=== PATIENT | male | born 1990 ===

== ENCOUNTER 2017-11-30 16:32 | Observation (INO) | payer OTHER ==
[2017-11-30] MEDS ORDERED: Lidocaine 2% MPF (5 ml) Inj ONE ×3 (16:57→18:57)
--- NOTE | 2017-11-30 18:16 | C.PDOC ---
History Of Present Illness 52 year old male comes to ER from an urgent care facility for evaluation of left ankle pain after he twisted it 3 days ago. Patient states he did not seek medical evaluation at time of injury, but went today due to persistent pain. Sarah farris was evaluated at [facility] and had XRays done and was sent to the ER to rule out compartment syndrome. He otherwise denies any lower extremity weakness or numbness. Time Seen by Provider: 11/30/17 16:38 Chief Complaint (Nursing): Lower Extremity Problem/Injury History Per: Patient History/Exam Limitations: no limitations Onset/Duration Of Symptoms: Days (3) Current Symptoms Are (Timing): Still Present Past Medical History Reviewed: Historical Data, Nursing Documentation, Vital Signs Vital Signs: Last Vital Signs Temp 985 F H 11/30/17 16:35 Pulse 78 11/30/17 16:35 Resp 15 11/30/17 16:35 BP 139/79 11/30/17 16:35 Pulse Ox 98 11/30/17 16:35 - Medical History PMH: No Chronic Diseases Surgical History: No Surg Hx Family History: States: No Known Family Hx - Social History Hx Alcohol Use: No Hx Substance Use: No - Immunization History Hx Tetanus Toxoid Vaccination: No Hx Influenza Vaccination: No Hx Pneumococcal Vaccination: No Review Of Systems Constitutional: Negative for: Fever, Chills Musculoskeletal: Positive for: Foot Pain (left foot and ankle pain and swelling) Neurological: Negative for: Weakness, Numbness Physical Exam - Physical Exam Appears: Non-toxic Skin: Normal Color, Warm, Dry Head: Atraumatic, Normacephalic, No Tenderness, No Swelling Eye(s): bilateral: Normal Inspection, EOMI Neck: Supple Chest: Symmetrical Extremity: Normal ROM, Tenderness (left ankle and foot diffuse tenderness greater at lateral aspect), Calf Tenderness (mild tenderness distal lateral calf, no redness or swelling), Capillary Refill, Swelling (left ankle and foot) Pulses: Left Dorsalis Pedis: Normal Neurological/Psych: Oriented x3, Normal Speech Gait: Steady ED Course And Treatment - Laboratory Results Result Diagrams: 11/30/17 20:05 11/30/17 20:05 Lab Interpretation: No Acute Changes O2 Sat by Pulse Oximetry: 98 (RA) Pulse Ox Interpretation: Normal Medical Decision Making Medical Decision Making: Impression: left ankle and foot pain and swelling Plan: -- XRays from [facility] reviewed and discussed case with provider at [facility]. Discussed case with ER physician Dr. Mckeon, who is agreeable with plan for podiatry consult. 1813 Case discussed with podiatry resident, who requests a CK study. 1829 Podiatry resident in ER, will evaluate patient. 1946 Podiatry resident evaluated compartment pressure and states pressure is slightly elevated on the lateral side with a reading of 39. CK results reviewed and elevated at 84. Podiatry resident requesting admission for observation, per Dr Urban. They also request dimer and doppler in AM to rule out DVT. Dr. Byrne, hospitalist crop production advisor paged. [address] Byrne, patient to be admitted for observation under him Labs ordered. Disposition - Disposition Disposition Time: 19:49 Condition: STABLE - POA Present On Arrival: None - Clinical Impression Clinical Impression: Pain and swelling of left ankle - PA / CORRECTIONS LIEUTENANT / Resident Statement MD/DO has reviewed & agrees with the documentation as recorded. - Scribe Statement The provider has reviewed the documentation as recorded by the Maria Luisa Dillon Provider Attestation: All medical record entries made by the Maria Luisa were at my direction and personally dictated by me. I have reviewed the chart and agree that the record accurately reflects my personal performance of the history, physical exam, medical decision making, and the department course for this patient. I have also personally directed, reviewed, and agree with the discharge instructions and disposition. Decision To Admit - Pt Status Changed To: Hospital Disposition Of: Observation - . Bed Request Type: Regular Admitting Physician: Leo Byrne Patient Diagnosis: Pain and swelling of left ankle
[2017-11-30] MEDS ORDERED: Morphine 4 MG/ML VIAL ONE (19:18)
[2017-11-30 20:08] LABS: BASO # 0.1 K/uL (0.0-0.2); BASO % 0.6 % (0.0-2.0); EOS # 0.2 K/uL (0.0-0.7); EOS % 2.4 % (0.0-4.0); HEMOGLOBIN 14.6 g/dL (12.0-18.0); LYMPH # 2.6 K/uL (1.0-4.3); LYMPH % 30.6 % (20.0-40.0); MEAN CELL VOLUME 86.2 fL (80.0-94.0); MEAN CORPUSCULAR HEMOGLOBIN 30.3 pg (27.0-31.0); MEAN CORPUSCULAR HGB CONC 35.1 g/dL (33.0-37.0); MEAN PLATELET VOLUME 8.3 fL (7.2-11.7); MONO # 0.4 K/uL (0.0-0.8); MONO % 5.1 % (0.0-10.0); NEUT # 5.3 K/uL (1.8-7.0); NEUT % 61.3 % (50.0-75.0); NRBC % 0.1 % (0.0-2.0); RBC 4.81 Mil/uL (4.40-5.90); RED CELL DISTRIBUTION WIDTH 12.8 % (11.5-14.5); WHITE BLOOD COUNT 8.6 K/uL (4.8-10.8)
[2017-11-30 20:27] LABS: ALB/GLOB RATIO 1.7 (1.0-2.1); ALBUMIN 4.5 g/dL (3.5-5.0); ALT/SGPT 40 U/L (21-72); AST/SGOT 21 U/L (17-59); BLOOD UREA NITROGEN 13 mg/dL (9-20); CALCIUM 9.5 mg/dl (8.6-10.4); GFR NON-AFRICAN AMERICAN > 60
--- NOTE | 2017-11-30 21:24 | CP.PCM.HP ---
Past Patient History - Infectious Disease Hx of Infectious Diseases: None - Past Social History Smoking Status: Never Smoked - PSYCHIATRIC Hx Substance Use: No - SURGICAL HISTORY Hx Surgeries: No - ANESTHESIA Hx Anesthesia: No Meds Allergies/Adverse Reactions: Allergies Allergy/AdvReac Type Severity Reaction Status Date / Time No Known Allergies Allergy Verified 11/30/17 16:34 Results - Vital Signs Recent Vital Signs: Last Vital Signs Temp 98.5 F 11/30/17 16:35 Pulse 68 11/30/17 20:33 Resp 13 11/30/17 20:33 BP 130/74 11/30/17 20:33 Pulse Ox 98 11/30/17 20:50 - Labs Result Diagrams: 11/30/17 20:05 11/30/17 20:05 Labs: Laboratory Results - last 24 hr 11/30/17 11/30/17 11/30/17 18:14 20:05 20:05 WBC 8.6 RBC 4.81 Hgb 14.6 Hct 41.5 MCV 86.2 MCH 30.3 MCHC 35.1 RDW 12.8 Plt Count 256 MPV 8.3 Neut % (Auto) 61.3 Lymph % (Auto) 30.6 [place] % (Auto) 5.1 Eos % (Auto) 2.4 Baso % (Auto) 0.6 Neut # (Auto) 5.3 Lymph # (Auto) 2.6 [place] # (Auto) 0.4 Eos # (Auto) 0.2 Baso # (Auto) 0.1 Sodium 143 Potassium 4.2 Chloride 107 Carbon Dioxide 24 Anion Gap 17 BUN 13 Creatinine 0.8 Est GFR ( Amer) > 60 Est GFR (Non-Af Amer) > 60 Random Glucose 85 Calcium 9.5 Total Bilirubin 0.6 AST 21 ALT 40 Alkaline Phosphatase 52 Total Creatine Kinase 86 Total Protein 7.1 Albumin 4.5 Globulin 2.6 Albumin/Globulin Ratio 1.7
--- NOTE | 2017-11-30 21:28 | CP.PCM.HP ---
<Ori Shaikh - Last Filed: 11/30/17 23:12> History of Present Illness - History of Present Illness History of Present Illness: CC: Left ankle/foot pain 27 y/o M w/ no PMHx, presents to ED w/ complaints of left foot pain X 3 days ago. Pain began after stepping off of a curb and subsequently twisting his ankle. The patient did not immediately seek medical attention, stating that he thought the pain was due an area of skin irritation on the same foot, between the 2nd and 3rd digits. He describes the pain as a hot stabbing pain, 8/10 at its peak, 5/10 at its lowest pain. He additionally states that the pain is all around his foot and occasionally shoots up proximal leg and knee area. The left foot pain is worse with dorsiflexion & plantarflexion and improved with ibuprofen. Pt states that he has been taking 3 tablets every 3-4 hours. Reports tingling in the left toes, but denies numbness. Patient does admit to recent travel, including 10 hour bus ride about 1 month prior. Patient reports mild L calf pain. Patient reports having visited an urgent care center earlier today for the pain, xray was performed, which showed no fractures; however, the urgent care recommended f/u in hospital to r/o compartment syndrome. ROS: Denies headaches, vision changes, chest pain, SOB, abdominal pain, constipation, diarrhea, fevers/chills, urinary complaints PMD: None PMHx: None Meds: Ibuprofen for the ankle pain Q3-4H Allergies: NKDA Surgeries: None FHx: Mother - sickle cell anemia, father - unknown SHx: Denies tobacco use, occasional ETOH consumption, occasional marijuana use, denies further drug use Present on Admission - Present on Admission Any Indicators Present on Admission: No Review of Systems - Constitutional Constitutional: absent: Chills, Fever - EENT Eyes: absent: Blurred Vision, Change in Vision Ears: absent: Decreased Hearing - Cardiovascular Cardiovascular: absent: Chest Pain, Leg Edema, Pedal Edema - Respiratory Respiratory: absent: Wheezing, Stridor - Gastrointestinal Gastrointestinal: absent: Abdominal Pain, Diarrhea - Genitourinary Genitourinary: absent: Change in Urinary Stream - Musculoskeletal Musculoskeletal: absent: Abnormal Gait, Muscle Weakness - Integumentary Integumentary: Skin Ulcer - Neurological Neurological: absent: Headaches, Loss of Vision Past Patient History - Infectious Disease Hx of Infectious Diseases: None - Past Social History Smoking Status: Never Smoked - PSYCHIATRIC Hx Substance Use: No - SURGICAL HISTORY Hx Surgeries: No - ANESTHESIA Hx Anesthesia: No Meds Allergies/Adverse Reactions: Allergies Allergy/AdvReac Type Severity Reaction Status Date / Time No Known Allergies Allergy Verified 11/30/17 16:34 Physical Exam - Constitutional Appears: Non-toxic, No Acute Distress - Head Exam Head Exam: ATRAUMATIC, NORMAL INSPECTION, NORMOCEPHALIC - Eye Exam Eye Exam: EOMI, Normal appearance, PERRL Pupil Exam: NORMAL ACCOMODATION - ENT Exam ENT Exam: Mucous Membranes Moist - Respiratory Exam Respiratory Exam: Clear to Auscultation Bilateral, NORMAL BREATHING PATTERN. absent: Rales, Rhonchi, Wheezes - Cardiovascular Exam Cardiovascular Exam: +S1, +S2. absent: Systolic Murmur - GI/Abdominal Exam GI & Abdominal Exam: Normal Bowel Sounds, Soft. absent: Firm, Guarding, Tenderness - Extremities Exam Extremities exam: Positive for: calf tenderness, normal capillary refill, tenderness, pedal pulses present. Negative for: pedal edema Additional comments: Superficial skin ulcer on lateral side of 2nd digit no discharge note Pain on plantarflexion/dorsiflexion Capillary reflex < 2 Posterior tibial pulse present [place] pedal pulse present No erythema present - Back Exam Back exam: absent: CVA tenderness (L), CVA tenderness (R) - Neurological Exam Neurological exam: Alert, CN II-XII Intact, Oriented x3 - Psychiatric Exam Psychiatric exam: Normal Affect, Normal Mood - Skin Skin Exam: Dry, Intact, Normal Color, Warm Results - Vital Signs Recent Vital Signs: Last Vital Signs Temp 98.5 F 11/30/17 16:35 Pulse 68 11/30/17 20:33 Resp 13 11/30/17 20:33 BP 130/74 11/30/17 20:33 Pulse Ox 98 11/30/17 20:50 - Labs Result Diagrams: 11/30/17 20:05 11/30/17 20:05 Labs: Laboratory Results - last 24 hr 11/30/17 11/30/17 11/30/17 18:14 20:05 20:05 WBC 8.6 RBC 4.81 Hgb 14.6 Hct 41.5 MCV 86.2 MCH 30.3 MCHC 35.1 RDW 12.8 Plt Count 256 MPV 8.3 Neut % (Auto) 61.3 Lymph % (Auto) 30.6 [place] % (Auto) 5.1 Eos % (Auto) 2.4 Baso % (Auto) 0.6 Neut # (Auto) 5.3 Lymph # (Auto) 2.6 [place] # (Auto) 0.4 Eos # (Auto) 0.2 Baso # (Auto) 0.1 D-Dimer, Quantitative < 200 Sodium Potassium Chloride Carbon Dioxide Anion Gap BUN Creatinine Est GFR ( Amer) Est GFR (Non-Af Amer) Random Glucose Calcium Total Bilirubin AST ALT Alkaline Phosphatase Total Creatine Kinase 86 Total Protein Albumin Globulin Albumin/Globulin Ratio 11/30/17 20:05 WBC RBC Hgb Hct MCV MCH MCHC RDW Plt Count MPV Neut % (Auto) Lymph % (Auto) [place] % (Auto) Eos % (Auto) Baso % (Auto) Neut # (Auto) Lymph # (Auto) [place] # (Auto) Eos # (Auto) Baso # (Auto) D-Dimer, Quantitative Sodium 143 Potassium 4.2 Chloride 107 Carbon Dioxide 24 Anion Gap 17 BUN 13 Creatinine 0.8 Est GFR ( Amer) > 60 Est GFR (Non-Af Amer) > 60 Random Glucose 85 Calcium 9.5 Total Bilirubin 0.6 AST 21 ALT 40 Alkaline Phosphatase 52 Total Creatine Kinase Total Protein 7.1 Albumin 4.5 Globulin 2.6 Albumin/Globulin Ratio 1.7 Assessment & Plan - Assessment and Plan (Free Text) Assessment: 27 y/o M w/ no PMHx, presents to ED w/ complaints of left foot pain X 3 days ago: L ankle/foot pain R/o compartment syndrome vs DVT - per urgent care center Xray: no fractures noted - F/u podiatry recs - Dr. Urban - Per ED note, compartment pressures slightly elevated - Would like admission for observation - Ibuprofen 400mg Q8H PRN mild pain - Ibuprofen 400mg Q8H PRN moderate pain - Toradol 15mg Q8H PRN severe pain Prophylaxis - GI: Protonix 40mg PO - DVT: DVT risk score 0 D/w Dr. Caty Shaikh, PGY1 <Leo Byrne - Last Filed: 12/01/17 06:31> Results - Vital Signs Recent Vital Signs: Last Vital Signs Temp 98.2 F 12/01/17 00:13 Pulse 67 12/01/17 00:13 Resp 20 12/01/17 00:13 BP 114/71 12/01/17 00:13 Pulse Ox 97 12/01/17 00:13 - Labs Result Diagrams: 11/30/17 20:05 11/30/17 20:05 Labs: Laboratory Results - last 24 hr 11/30/17 11/30/17 11/30/17 18:14 20:05 20:05 WBC 8.6 RBC 4.81 Hgb 14.6 Hct 41.5 MCV 86.2 MCH 30.3 MCHC 35.1 RDW 12.8 Plt Count 256 MPV 8.3 Neut % (Auto) 61.3 Lymph % (Auto) 30.6 [place] % (Auto) 5.1 Eos % (Auto) 2.4 Baso % (Auto) 0.6 Neut # (Auto) 5.3 Lymph # (Auto) 2.6 [place] # (Auto) 0.4 Eos # (Auto) 0.2 Baso # (Auto) 0.1 D-Dimer, Quantitative < 200 Sodium Potassium Chloride Carbon Dioxide Anion Gap BUN Creatinine Est GFR ( Amer) Est GFR (Non-Af Amer) Random Glucose Calcium Total Bilirubin AST ALT Alkaline Phosphatase Total Creatine Kinase 86 Total Protein Albumin Globulin Albumin/Globulin Ratio 11/30/17 20:05 WBC RBC Hgb Hct MCV MCH MCHC RDW Plt Count MPV Neut % (Auto) Lymph % (Auto) [place] % (Auto) Eos % (Auto) Baso % (Auto) Neut # (Auto) Lymph # (Auto) [place] # (Auto) Eos # (Auto) Baso # (Auto) D-Dimer, Quantitative Sodium 143 Potassium 4.2 Chloride 107 Carbon Dioxide 24 Anion Gap 17 BUN 13 Creatinine 0.8 Est GFR ( Amer) > 60 Est GFR (Non-Af Amer) > 60 Random Glucose 85 Calcium 9.5 Total Bilirubin 0.6 AST 21 ALT 40 Alkaline Phosphatase 52 Total Creatine Kinase Total Protein 7.1 Albumin 4.5 Globulin 2.6 Albumin/Globulin Ratio 1.7 Assessment & Plan - Date & Time Date: 12/01/17 (I have seen and examined the patient. I agree with the findings and plan of care as documented by Dr. Shaikh. Patient with recent ankle injury resulting in swelling and pain. Concern for potential compartment syndrome. Consult to podiatry. Symptomatic treatment. Lower extremity doppler. Monitor for acute changes.) Time: 06:29 Attending/Attestation - Attestation I have personally seen and examined this patient.: Yes I have fully participated in the care of the patient.: Yes I have reviewed all pertinent clinical information: Yes
[2017-11-30 21:40] VITALS: RESP 20
--- NOTE | 2017-12-01 06:55 | CP.PCM.CON ---
History of Present Illness - History of Present Illness History of Present Illness: 27 y/o male patient with no significant PMHx presented to the ED due to complaints of pain to his left ankle. Patient states 3 days prior he twisted his ankle while walking on an uneven sidewalk. Patient did not seek medical treatment at that time. Patient states he attributed the pain coming from his interdigital maceration, however, the pain worsened overtime. Patient reports he took Ibuprofen for the pain, however, that did not alleviate his symptoms. Patient went to [facility]gent [facility] and had radiographic imaging performed. James mora reports he was told he does not have a fracture or a dislocation, however, was sent to [facility] to r/o Compartment Syndrome. Patient states he continued to work the last 3 days, however, today he was unable to bear weight or walk more than 2 feet. Patient also complains of posterior calf pain. Patient reports he is normally a very active individual. Patient denies any other symptoms, and denies chest pain, nausea, vomiting, SOB. PMHx: none PSHx: none Allergies: none Medications: none Social Hx: Denies tobacco use, occasional ETOH consumption, occasional marijuana use, denies further drug use Review of Systems - Constitutional Constitutional: absent: Chills, Fatigue, Weakness - EENT Eyes: absent: Blurred Vision - Cardiovascular Cardiovascular: absent: Chest Pain, Chest Pain at Rest, Chest Pain with Activity, Dyspnea on Exertion - Respiratory Respiratory: absent: Cough, Dyspnea - Gastrointestinal Gastrointestinal: absent: Abdominal Pain, Nausea, Vomiting - Musculoskeletal Musculoskeletal: Abnormal Gait, Limited Range of Motion, Numbness, Tingling - Neurological Neurological: Numbness, Tingling Past Patient History - Infectious Disease Hx of Infectious Diseases: None - Past Social History Smoking Status: Never Smoked - PSYCHIATRIC Hx Substance Use: No - SURGICAL HISTORY Hx Surgeries: No - ANESTHESIA Hx Anesthesia: No Meds Allergies/Adverse Reactions: Allergies Allergy/AdvReac Type Severity Reaction Status Date / Time No Known Allergies Allergy Verified 11/30/17 16:34 - Medications Medications: Current Medications Ibuprofen (Motrin Tab) 600 mg PO TID PRN PRN Reason: Pain, moderate (4-7) Ibuprofen (Motrin Tab) 400 mg PO TID PRN PRN Reason: Pain, Mild (1-3) Influenza Virus Vaccine (Fluzone Quad [id number]) 60 mcg IM .ONCE ONE Stop: 12/02/17 10:01 Ketorolac Tromethamine (Toradol) 15 mg IVP Q6 PRN PRN Reason: Pain, severe (8-10) Last Admin: 11/30/17 23:04 Dose: 15 mg Pantoprazole Sodium (Protonix Ec Tab) 40 mg PO DAILY CORNELIO Pneumococcal Polyvalent Vaccine (Pneumovax 23 Vaccine) 0.5 ml IM .ONCE ONE Stop: 12/02/17 10:01 Physical Exam - Constitutional Appears: Well, Non-toxic, No Acute Distress - Head Exam Head Exam: ATRAUMATIC, NORMOCEPHALIC - Extremities Exam Extremities exam: Positive for: calf tenderness, pedal edema, tenderness Additional comments: Bilateral Lower Extremity Exam VASC: Left- DP 1/4 and PT 2/4, CFT delayed to 5 seconds, non-pitting edema noted to the dorsum of the foot, TG warm to cooler when compared to the contralateral side Right- DP and PT 2/4, CFT less than 3 seconds, no edema noted, no varicosities, TG warm to warm NEURO: Left- moderately diminished sensation to the lateral aspect of the foot, mild numbness noted to the rest of the foot Right- Epicritic and protective sensation intact DERM: no open lesions, no erythema, no clinical signs of infection ORTHO: Left- limited range of motion at the ankle, patient guarding due to pain, pain with range of motion of the MTPJs- worst with range of motion of the 5th MTPJ, p ain on palpation the lateral ankle, pain on palpation along the course of the peroneal tendons along the leg and foot, pain on posterior calf squeeze - Neurological Exam Neurological exam: Alert, Oriented x3 - Psychiatric Exam Psychiatric exam: Normal Affect, Normal Mood Results - Vital Signs Recent Vital Signs: Last Vital Signs Temp 98.2 F 12/01/17 00:13 Pulse 67 12/01/17 00:13 Resp 20 12/01/17 00:13 BP 114/71 12/01/17 00:13 Pulse Ox 97 12/01/17 00:13 - Labs Result Diagrams: 11/30/17 20:05 11/30/17 20:05 Labs: Laboratory Results - last 24 hr 11/30/17 11/30/17 11/30/17 18:14 20:05 20:05 WBC 8.6 RBC 4.81 Hgb 14.6 Hct 41.5 MCV 86.2 MCH 30.3 MCHC 35.1 RDW 12.8 Plt Count 256 MPV 8.3 Neut % (Auto) 61.3 Lymph % (Auto) 30.6 [place] % (Auto) 5.1 Eos % (Auto) 2.4 Baso % (Auto) 0.6 Neut # (Auto) 5.3 Lymph # (Auto) 2.6 [place] # (Auto) 0.4 Eos # (Auto) 0.2 Baso # (Auto) 0.1 D-Dimer, Quantitative < 200 Sodium Potassium Chloride Carbon Dioxide Anion Gap BUN Creatinine Est GFR ( Amer) Est GFR (Non-Af Amer) Random Glucose Calcium Total Bilirubin AST ALT Alkaline Phosphatase Total Creatine Kinase 86 Total Protein Albumin Globulin Albumin/Globulin Ratio 11/30/17 20:05 WBC RBC Hgb Hct MCV MCH MCHC RDW Plt Count MPV Neut % (Auto) Lymph % (Auto) [place] % (Auto) Eos % (Auto) Baso % (Auto) Neut # (Auto) Lymph # (Auto) [place] # (Auto) Eos # (Auto) Baso # (Auto) D-Dimer, Quantitative Sodium 143 Potassium 4.2 Chloride 107 Carbon Dioxide 24 Anion Gap 17 BUN 13 Creatinine 0.8 Est GFR ( Amer) > 60 Est GFR (Non-Af Amer) > 60 Random Glucose 85 Calcium 9.5 Total Bilirubin 0.6 AST 21 ALT 40 Alkaline Phosphatase 52 Total Creatine Kinase Total Protein 7.1 Albumin 4.5 Globulin 2.6 Albumin/Globulin Ratio 1.7 Assessment & Plan - Assessment and Plan (Free Text) Assessment: 27 y/o male patient with no PMHx was seen and evaluated bedside due to complaints of left ankle pain r/o compartment syndrome Plan: Patient was seen and evaluated in the ED Plan was discussed with Dr. Urban Patient X-rays were thoroughly reviewed from [facility], and no fractures, dislocations or deformities were noted- x-rays were not repeated at [facility] ED Patient was thoroughly explained the signs, symptoms and etiology of compartment syndrome vs. DVT Creatinine Kinase was ordered- 86 D-Dimer Ordered Patient was agreeable to checking compartment pressure of the foot Patient given Morphine IM prior to procedure Sterile Wick's catheter was used to check compartment pressure - Reading #1 Lateral Compartment 39 mmHg - Reading #2 Lateral Compartment 35 mmHg - Reading #2 Anterior compartment 14 mmHg Patient tolerated the procedure well Patient was explained reading slightly elevated in the lateral compartment and it would be recommended patient be admitted for observation Patient demonstrated verbal understanding Patient will be admitted for further workup - F/u [facility], BMP, D-dimer, Duplex LE r/o DVT Patient was admitted under hospitalist, Dr. Culp thank You for the Podiatry consult
[2017-12-01 07:25] LABS: BASO # 0.1 K/uL (0.0-0.2); BASO % 0.8 % (0.0-2.0); EOS # 0.3 K/uL (0.0-0.7); EOS % 4.3 % (0.0-4.0); HEMOGLOBIN 14.9 g/dL (12.0-18.0); LYMPH # 2.7 K/uL (1.0-4.3); LYMPH % 39.1 % (20.0-40.0); MEAN CELL VOLUME 87.2 fL (80.0-94.0); MEAN CORPUSCULAR HEMOGLOBIN 30.7 pg (27.0-31.0); MEAN CORPUSCULAR HGB CONC 35.2 g/dL (33.0-37.0); MEAN PLATELET VOLUME 8.4 fL (7.2-11.7); MONO # 0.5 K/uL (0.0-0.8); MONO % 7.8 % (0.0-10.0); NEUT # 3.3 K/uL (1.8-7.0); NRBC % 0.2 % (0.0-2.0); RBC 4.84 Mil/uL (4.40-5.90); RED CELL DISTRIBUTION WIDTH 12.9 % (11.5-14.5); WHITE BLOOD COUNT 6.8 K/uL (4.8-10.8)
[2017-12-01 07:50] VITALS: BP 118/74; PULSE 69; TEMP 98; O2SAT 96
[2017-12-01 08:05] LABS: ALB/GLOB RATIO 1.7 (1.0-2.1); ALBUMIN 4.3 g/dL (3.5-5.0); ALT/SGPT 41 U/L (21-72); AST/SGOT 41 U/L (17-59); BLOOD UREA NITROGEN 15 mg/dL (9-20); CALCIUM 9.5 mg/dl (8.6-10.4); GFR NON-AFRICAN AMERICAN > 60
[2017-12-01] MEDS ORDERED: Pantoprazole 40 mg EC Tab PO SCH (10:00)
--- NOTE | 2017-12-01 13:36 | CP.PCM.DIS ---
<Chao Romano - Last Filed: 12/01/17 13:36> Provider - Provider Date of Admission: 11/30/17 20:00 Attending physician: Leo Byrne MD Time Spent in preparation of Discharge (in minutes): 45 Diagnosis - Discharge Diagnosis (1) Pain and swelling of left ankle Status: Acute Priority: Medium Hospital Course - Lab Results Lab Results: Most Recent Lab Values WBC 6.8 K/uL (4.8-10.8) 12/01/17 07:14 RBC 4.84 Mil/uL (4.40-5.90) 12/01/17 07:14 Hgb 14.9 g/dL (12.0-18.0) 12/01/17 07:14 Hct 42.2 % (35.0-51.0) 12/01/17 07:14 MCV 87.2 fL (80.0-94.0) 12/01/17 07:14 MCH 30.7 pg (27.0-31.0) 12/01/17 07:14 MCHC 35.2 g/dL (33.0-37.0) 12/01/17 07:14 RDW 12.9 % (11.5-14.5) 12/01/17 07:14 Plt Count 246 K/uL (130-400) 12/01/17 07:14 MPV 8.4 fL (7.2-11.7) 12/01/17 07:14 Neut % (Auto) 48.0 % (50.0-75.0) L 12/01/17 07:14 Lymph % (Auto) 39.1 % (20.0-40.0) 12/01/17 07:14 Hoke % (Auto) 7.8 % (0.0-10.0) 12/01/17 07:14 Eos % (Auto) 4.3 % (0.0-4.0) H 12/01/17 07:14 Baso % (Auto) 0.8 % (0.0-2.0) 12/01/17 07:14 Neut # (Auto) 3.3 K/uL (1.8-7.0) 12/01/17 07:14 Lymph # (Auto) 2.7 K/uL (1.0-4.3) 12/01/17 07:14 Hoke # (Auto) 0.5 K/uL (0.0-0.8) 12/01/17 07:14 Eos # (Auto) 0.3 K/uL (0.0-0.7) 12/01/17 07:14 Baso # (Auto) 0.1 K/uL (0.0-0.2) 12/01/17 07:14 D-Dimer, Quantitative < 200 ng/mlDDU (0-243) 11/30/17 20:05 Sodium 143 mmol/L (132-148) 12/01/17 07:14 Potassium 4.5 mmol/L (3.6-5.2) 12/01/17 07:14 Chloride 106 mmol/L (98-107) 12/01/17 07:14 Carbon Dioxide 26 mmol/L (22-30) 12/01/17 07:14 Anion Gap 15 (10-20) 12/01/17 07:14 BUN 15 mg/dL (9-20) 12/01/17 07:14 Creatinine 0.9 mg/dL (0.8-1.5) 12/01/17 07:14 Est GFR ( Amer) > 60 12/01/17 07:14 Est GFR (Non-Af Amer) > 60 12/01/17 07:14 Random Glucose 89 mg/dL (75-110) 12/01/17 07:14 Calcium 9.5 mg/dl (8.6-10.4) 12/01/17 07:14 Phosphorus 5.0 mg/dL (2.5-4.5) H 12/01/17 07:14 Magnesium 2.0 mg/dL (1.6-2.3) 12/01/17 07:14 Total Bilirubin 0.7 mg/dL (0.2-1.3) 12/01/17 07:14 AST 41 U/L (17-59) 12/01/17 07:14 ALT 41 U/L (21-72) 12/01/17 07:14 Alkaline Phosphatase 51 U/L (38-126) 12/01/17 07:14 Total Creatine Kinase 86 U/L (55-170) 11/30/17 18:14 Total Protein 6.8 g/dL (6.3-8.3) 12/01/17 07:14 Albumin 4.3 g/dL (3.5-5.0) 12/01/17 07:14 Globulin 2.5 gm/dL (2.2-3.9) 12/01/17 07:14 Albumin/Globulin Ratio 1.7 (1.0-2.1) 12/01/17 07:14 Influenza Typ A,B (EIA) Negative for flu a/b (NEGATIVE) 12/01/17 08:45 - Hospital Course Hospital Course: HPI 27 y/o M w/ no PMHx, presents to ED w/ complaints of left foot pain X 3 days ago. Pain began after stepping off of a curb and subsequently twisting his ankle. The patient did not immediately seek medical attention, stating that he thought the pain was due an area of skin irritation on the same foot, between the 2nd and 3rd digits. He describes the pain as a hot stabbing pain, 8/10 at its peak, 5/10 at its lowest pain. He additionally states that the pain is all around his foot and occasionally shoots up proximal leg and knee area. The left foot pain is worse with dorsiflexion & plantarflexion and improved with ibuprofen. Pt states that he has been taking 3 tablets every 3-4 hours. Reports tingling in the left toes, but denies numbness. Hospital course: Pt was given morphine 4mg and torodol 15mg IV for pain control. X rays reveal no fracture or dislocation. r/o dvt Venous dopplers will be read and notfied to Pt after discharge, D-Dimers neg. Pt was seen by podiatry Dr Urban who recommended spliting and outpt followup, d/c home. this is a summar, please refer to [employer] for complete info Discharge Exam - Head Exam Head Exam: ATRAUMATIC, NORMOCEPHALIC - Additional Findings Additional findings: - Constitutional Appears: Well, Non-toxic, No Acute Distress - Head Exam Head Exam: ATRAUMATIC, NORMOCEPHALIC - Extremities Exam Extremities exam: Positive for: calf tenderness, pedal edema, tenderness Additional comments: Bilateral Lower Extremity Exam VASC: Left- DP 1/4 and PT 2/4, CFT delayed to 5 seconds, non-pitting edema noted to the dorsum of the foot, TG warm to cooler when compared to the contralateral side Right- DP and PT 2/4, CFT less than 3 seconds, no edema noted, no varicosities, TG warm to warm NEURO: Bilateral Epicritic and protective sensation intact DERM: no open lesions, no erythema, no clinical signs of infection ORTHO: Left- limited range of motion at the ankle, patient guarding due to pain, pain with range of motion of the MTPJs- worst with range of motion of the 5th MTPJ, pain on palpation the lateral ankle, pain on palpation along the course of the peroneal tendons along the leg and foot, pain on posterior calf squeeze - Neurological Exam Neurological exam: Alert, Oriented x3 - Psychiatric Exam Psychiatric exam: Normal Affect, Normal Mood Discharge Plan - Follow Up Plan Condition: STABLE Disposition: HOME/ ROUTINE Instructions: Ankle Sprain (DC), How to Use Crutches, Going Up and Down Curbs or Stairs With a Walker or Crutches Additional Instructions: Pt is to be discharged home: Pt is to follow up in office with Dr Bertha Urban Chancery Clerk within 1 week at [address] [place] [phone] call [phone] Pt is to remain in splint until podiatry recommends mobilization. Pt may take over the counter Aleve for pain control and anti-inflammatory effect, up to 3 x a day, Pt is not to exceed 1500mg per day. Pt will be notified of any pending results from his hospital stay if requiring immediate attention. Take care and be wellElise DO Referrals: Bertha Urban DPM [Staff Provider] - <Lesia Solis - Last Filed: 12/10/17 16:50> Provider - Provider Date of Admission: 11/30/17 20:00 Attending physician: Leo Byrne MD Hospital Course - Lab Results Lab Results: Most Recent Lab Values WBC 6.8 K/uL (4.8-10.8) 12/01/17 07:14 RBC 4.84 Mil/uL (4.40-5.90) 12/01/17 07:14 Hgb 14.9 g/dL (12.0-18.0) 12/01/17 07:14 Hct 42.2 % (35.0-51.0) 12/01/17 07:14 MCV 87.2 fL (80.0-94.0) 12/01/17 07:14 MCH 30.7 pg (27.0-31.0) 12/01/17 07:14 MCHC 35.2 g/dL (33.0-37.0) 12/01/17 07:14 RDW 12.9 % (11.5-14.5) 12/01/17 07:14 Plt Count 246 K/uL (130-400) 12/01/17 07:14 MPV 8.4 fL (7.2-11.7) 12/01/17 07:14 Neut % (Auto) 48.0 % (50.0-75.0) L 12/01/17 07:14 Lymph % (Auto) 39.1 % (20.0-40.0) 12/01/17 07:14 Hoke % (Auto) 7.8 % (0.0-10.0) 12/01/17 07:14 Eos % (Auto) 4.3 % (0.0-4.0) H 12/01/17 07:14 Baso % (Auto) 0.8 % (0.0-2.0) 12/01/17 07:14 Neut # (Auto) 3.3 K/uL (1.8-7.0) 12/01/17 07:14 Lymph # (Auto) 2.7 K/uL (1.0-4.3) 12/01/17 07:14 Hoke # (Auto) 0.5 K/uL (0.0-0.8) 12/01/17 07:14 Eos # (Auto) 0.3 K/uL (0.0-0.7) 12/01/17 07:14 Baso # (Auto) 0.1 K/uL (0.0-0.2) 12/01/17 07:14 D-Dimer, Quantitative < 200 ng/mlDDU (0-243) 11/30/17 20:05 Sodium 143 mmol/L (132-148) 12/01/17 07:14 Potassium 4.5 mmol/L (3.6-5.2) 12/01/17 07:14 Chloride 106 mmol/L (98-107) 12/01/17 07:14 Carbon Dioxide 26 mmol/L (22-30) 12/01/17 07:14 Anion Gap 15 (10-20) 12/01/17 07:14 BUN 15 mg/dL (9-20) 12/01/17 07:14 Creatinine 0.9 mg/dL (0.8-1.5) 12/01/17 07:14 Est GFR ( Amer) > 60 12/01/17 07:14 Est GFR (Non-Af Amer) > 60 12/01/17 07:14 Random Glucose 89 mg/dL (75-110) 12/01/17 07:14 Calcium 9.5 mg/dl (8.6-10.4) 12/01/17 07:14 Phosphorus 5.0 mg/dL (2.5-4.5) H 12/01/17 07:14 Magnesium 2.0 mg/dL (1.6-2.3) 12/01/17 07:14 Total Bilirubin 0.7 mg/dL (0.2-1.3) 12/01/17 07:14 AST 41 U/L (17-59) 12/01/17 07:14 ALT 41 U/L (21-72) 12/01/17 07:14 Alkaline Phosphatase 51 U/L (38-126) 12/01/17 07:14 Total Creatine Kinase 86 U/L (55-170) 11/30/17 18:14 Total Protein 6.8 g/dL (6.3-8.3) 12/01/17 07:14 Albumin 4.3 g/dL (3.5-5.0) 12/01/17 07:14 Globulin 2.5 gm/dL (2.2-3.9) 12/01/17 07:14 Albumin/Globulin Ratio 1.7 (1.0-2.1) 12/01/17 07:14 Influenza Typ A,B (EIA) Negative for flu a/b (NEGATIVE) 12/01/17 08:45 Attending/Attestation - Attestation I have personally seen and examined this patient.: Yes I have fully participated in the care of the patient.: Yes I have reviewed all pertinent clinical information, including history, physical exam and plan: Yes
[2017-12-01] MEDS ORDERED: Pneumococcal 23-Valent Vaccine IM ONE (15:30)
[2017-12-01] MEDS ORDERED: Influenza Vaccine 60 MCG/0.5 ML SYR (3 yr & up) IM ONE (15:30)
--- NOTE | 2017-12-02 09:51 | VASCLAB ---
Date of service: 12/01/2017 PROCEDURE: Lower Extremity Venous Duplex Exam. HISTORY: PAIN IN LIMB PRIORS: None. TECHNIQUE: Bilateral common femoral, femoral, popliteal and posterior tibial, peroneal and great saphenous veins were evaluated. Flow was assessed with color Doppler, compressibility, assessment of phasic flow and augmentation response. Report prepared by ALEXANDRA Linares FINDINGS: RIGHT: 1. Common Femoral Vein: 1.1. Compressibility - Fully compressible: Thrombus - None : Flow - Phasic: Augmentation -Normal: Reflux - None. 2. Femoral Vein: 2.1. Compressibility - Fully compressible: Thrombus - None : Flow - Phasic: Augmentation -Normal: Reflux - None. 3. Popliteal Vein: 3.1. Compressibility - Fully compressible: Thrombus - None : Flow - Phasic: Augmentation -Normal: Reflux - None. 4. Posterior Tibial Vein: 4.1. Compressibility - Fully compressible: Thrombus - None: Flow - Phasic: Augmentation -Normal: Reflux - None. 5. Peroneal Vein: 5.1. Compressibility - Fully compressible: Thrombus - None: Flow - Phasic: Augmentation -Normal: Reflux - None. 6. Great Saphenous Vein: 6.1. Compressibility - Fully compressible: Thrombus - None: Flow - Phasic: Augmentation - Normal: Reflux - None. LEFT: 1. Common Femoral Vein: 1.1. Compressibility - Fully compressible: Thrombus - None: Flow - Phasic: Augmentation -Normal: Reflux - None. 2. Femoral Vein: 2.1. Compressibility - Fully compressible: Thrombus - None: Flow - Phasic: Augmentation -Normal: Reflux - None. 3. Popliteal Vein: 3.1. Compressibility - Fully compressible: Thrombus - None : Flow - Phasic: Augmentation -Normal: Reflux - None. 4. Posterior Tibial Vein: 4.1. Compressibility - Fully compressible: Thrombus - None: Flow - Phasic: Augmentation -Normal: Reflux - None. 5. Peroneal Vein: 5.1. Compressibility - Fully compressible: Thrombus - None: Flow - Phasic: Augmentation -Normal: Reflux - None. 6. Great Saphenous Vein: 6.1. Compressibility - Fully compressible: Thrombus - None: Flow - Phasic: Augmentation - Normal: Reflux - None. OTHER FINDINGS: Right: None significant. Left: A non vascularized mass was noted in the left groin area, measuring 1.24 x 91 cm., possibly a lymph node. IMPRESSION: Right: No evidence of deep or superficial vein thrombosis of the right lower extremity. Normal valve function noted of the right side. Left: No evidence of deep or superficial vein thrombosis of the left lower extremity. Normal valve function noted of the left side.
== END 2017-12-01 16:05 | disposition home or self-care (01) ==
LOC: C.ER 16:32 → C.9E 20:00 → C.3T 20:42
PROVIDERS: ADMIT Family Medicine; ATTEND Family Medicine
DX: M25.572 Pain in left ankle and joints of left foot (principal); M25.472 Effusion, left ankle; X50.1XXA Overexertion from prolonged static or awkward postures, initial encounter; Y92.480 Sidewalk as the place of occurrence of the external cause; Z83.2 Family history of diseases of the blood and blood-forming organs and certain disorders involving the immune mechanism
CPT/HCPCS: 36415; 80053; 82550; 83735; 84100; 85025; 85378; 87804; 90471; 90674; 90732; 93970; 96372; 96374; 97116; 97161; 99285; G0378; G8978; G8979; G8980; J1885; J2270